=== PATIENT | male | born 1990 | race Caucasian/White ===

== ENCOUNTER 2020-02-04 16:53 | Emergency (ER) | payer BC ==
[~2020-02-04] VITALS: Ht 175.3 cm; Wt 117.9 kg
[2020-02-04 16:56] VITALS: BP 120/79
--- NOTE | 2020-02-04 17:02 | NUR ---
PT AMBULATED TO BED 12.
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
[2020-02-04 18:23] VITALS: BP 142/77
--- NOTE | 2020-02-04 18:23 | NUR ---
Patient discharged with v/s stable. Written and verbal after care instructions given and explained. Patient alert, oriented and verbalized understanding of instructions. Ambulatory with steady gait. All questions addressed prior to discharge. ID band removed. Patient advised to follow up with PMD. Rx of Valium 5mg and Ibuprofen 600mg given. Work excuse provided for next two days. Patient educated on indication of medication including possible reaction and side effects. Opportunity to ask questions provided and answered.
== END 2020-02-04 18:23 | disposition home or self-care (01) ==
LOC: MED 16:53
DX: R51.9 Headache, unspecified (principal); M54.2 Cervicalgia; R11.0 Nausea; Z98.890 Other specified postprocedural states; V49.9XXA Car occupant (driver) (passenger) injured in unspecified traffic accident, initial encounter; Y93.89 Activity, other specified; Y92.89 Other specified places as the place of occurrence of the external cause; Y99.8 Other external cause status
CPT/HCPCS: 70450; 72125; 99285

== ENCOUNTER 2020-02-11 10:48 | Emergency (ER) | payer BC ==
[~2020-02-11] VITALS: Ht 175.3 cm; Wt 132.4 kg
[2020-02-11 10:52] VITALS: BP 143/68
[2020-02-11 12:09] VITALS: BP 143/68
== END 2020-02-11 12:10 | disposition home or self-care (01) ==
LOC: MED 10:48
DX: S06.0X0A Concussion without loss of consciousness, initial encounter (principal); S90.31XA Contusion of right foot, initial encounter; V89.2XXA Person injured in unspecified motor-vehicle accident, traffic, initial encounter; Y93.89 Activity, other specified; Y92.89 Other specified places as the place of occurrence of the external cause; Y99.8 Other external cause status
CPT/HCPCS: 73630; 99283; Q0092

== ENCOUNTER 2020-08-01 10:16 | Emergency (ER) | payer BC ==
[~2020-08-01] VITALS: Ht 175.3 cm; Wt 131.5 kg
[2020-08-01 10:23] VITALS: BP 154/72
--- NOTE | 2020-08-01 10:33 | NUR ---
DR GRIMM AT BEDSIDE
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
--- NOTE | 2020-08-01 10:37 | NUR ---
RAD AT BEDSIDE
== END 2020-08-01 11:05 | disposition home or self-care (01) ==
LOC: MED 10:16
DX: S83.10 Unspecified subluxation and dislocation of knee (principal); R03.0 Elevated blood-pressure reading, without diagnosis of hypertension; X58.XXXD Exposure to other specified factors, subsequent encounter
CPT/HCPCS: 73562; 99283

== ENCOUNTER 2021-01-01 02:53 | Emergency (ER) | payer BC ==
[~2021-01-01] VITALS: Ht 172.7 cm; Wt 131.5 kg
[2021-01-01 03:01] VITALS: BP 167/45
--- NOTE | 2021-01-01 03:13 | NUR ---
PT TAKEN TO BED 3
--- NOTE | 2021-01-01 03:15 | NUR ---
Dr. Melo examining patient.
[2021-01-01] MEDS ORDERED: IBUPROFEN 600 MG TAB PO ONE (03:20)
--- NOTE | 2021-01-01 03:25 | NUR ---
Blood for labwork drawn from [facility]. Patient tolerated WELL
[2021-01-01 03:35] LABS: BASOPHILS % (AUTO) 0.3 % (0.0-2.0); EOSINOPHILS # (AUTO) 0.2 K/uL (0-0.4); EOSINOPHILS % (AUTO) 1.4 % (0.0-4.0); HEMATOCRIT 40.4 % (36-52); HEMOGLOBIN 13.4 g/dL (12.0-18.0); LYMPHOCYTES # (AUTO) 2.5 K/uL (2.0-11.5); LYMPHOCYTES % (AUTO) 17.5 % (20.5-51.1); MEAN CORPUSCULAR HEMOGLOBIN 28 pg (27-31); MEAN CORPUSCULAR HGB CONC 33 g/dL (33-37); MEAN CORPUSCULAR VOLUME 85.1 fL (80-94); MONOCYTES # (AUTO) 1.5 K/uL (0.8-1.0); MONOCYTES % (AUTO) 10.3 % (1.7-9.3); NEUTROPHILS # (AUTO) 10.1 K/uL (1.8-7.7); NEUTROPHILS % (AUTO) 70.5 % (42.2-75.2); PLATELET COUNT (AUTO) 304 K/uL (140-450); RED BLOOD CELL COUNT(AUTO) 4.75 MIL/uL (4.20-6.10); RED CELL DISTRIBUTION WIDTH 13.7 % (11.6-13.7); WHITE BLOOD COUNT (AUTO) 14.4 K/uL (4.8-10.8)
[2021-01-01 03:35] LABS: APPEARANCE,URINE CLEAR (CLEAR); BILIRUBIN,URINE NEGATIVE (NEGATIVE); BLOOD, URINE TRACE-I (NEGATIVE); COLOR,URINE YELLOW (YELLOW); LEUKOCYTE ESTERASE ,URINE NEGATIVE (NEGATIVE); NITRITE, URINE NEGATIVE (NEGATIVE); UGLUCOSE NEGATIVE (NEGATIVE)
[2021-01-01 03:41] LABS: RBC,URINE 0-5 /HPF (0-5); WBC,URINE 0-5 /HPF (0-5)
[2021-01-01 03:51] LABS: ALBUMIN 3.8 g/dL (3.4-5.0); ANION GAP 9.6 (8-16); CARBON DIOXIDE 28.4 mmol/L (21-32); CREATININE 0.9 mg/dL (0.6-1.3); TOTAL BILIRUBIN 0.3 mg/dL (0.0-1.0)
--- NOTE | 2021-01-01 04:30 | NUR ---
ALL RESULTS BACK AND NOTED BY ERMD AND FOR DC
[2021-01-01] MEDS ORDERED: MAGN1.7529 PO (04:58)
[2021-01-01 05:00] VITALS: BP 138/71
--- NOTE | 2021-01-01 05:00 | NUR ---
Patient discharged with v/s stable. Written and verbal after care instructions given and explained. Patient alert, oriented and verbalized understanding of instructions. Ambulatory with to car. All questions addressed prior to discharge. ID band removed. Patient advised to follow up with PMD. Rx of MAGNESUIN CITRATE given. Patient educated on indication of medication including possible reaction and side effects. Opportunity to ask questions provided and answered.
== END 2021-01-01 05:00 | disposition home or self-care (01) ==
LOC: MED 02:53
DX: K59.00 Constipation, unspecified (principal); R10.13 Epigastric pain
CPT/HCPCS: 36415; 74018; 80053; 81001; 83690; 85025; 99284

== ENCOUNTER 2021-01-02 11:30 | Emergency (ER) | payer BC ==
[~2021-01-02 11:30] MED LIST: MAGN1.7529 PO
--- NOTE | 2021-01-02 11:50 | NUR ---
PATIENT LEFT WITHOUT BEING SEEN BY DR. COY. NO FURTHER CARE PROVIDED FOR PATIENT.
== END 2021-01-02 11:50 | disposition left against medical advice (07) ==
LOC: MED 11:30
DX: Z53.21 Procedure and treatment not carried out due to patient leaving prior to being seen by health care provider (principal)

== ENCOUNTER 2021-07-15 11:15 | Emergency (ER) | payer BC ==
[~2021-07-15] VITALS: Ht 175.3 cm; Wt 127.0 kg
[2021-07-15 11:18] VITALS: BP 147/77
--- NOTE | 2021-07-15 11:24 | NUR ---
pt ambulated to bed 11 with steady gait.
--- NOTE | 2021-07-15 11:35 | NUR ---
DR NG AT BEDSIDE.
--- NOTE | 2021-07-15 12:07 | NUR ---
Patient discharged with v/s stable. Written and verbal after care instructions given and explained. Patient verbalized understanding. Ambulatory with steady gait. All questions addressed prior to discharge. Advised to follow up with PMD.
[2021-07-15 12:08] VITALS: BP 147/77
== END 2021-07-15 12:07 | disposition home or self-care (01) ==
LOC: MED 11:15
DX: H00.011 Hordeolum externum right upper eyelid (principal)
CPT/HCPCS: 99282

== ENCOUNTER 2021-08-14 15:08 | Emergency (ER) | payer BC ==
[~2021-08-14] VITALS: Ht 175.3 cm; Wt 122.5 kg
[2021-08-14 15:13] VITALS: BP 110/67
[2021-08-14] MEDS ORDERED: BACITRACIN OINT 500 UNITS/GM PKT TP ONE (15:15)
[2021-08-14] MEDS ORDERED: LIDOCAINE MPF 1% 10 MG/ML VIAL INJ ONE (15:15)
[2021-08-14] MEDS ORDERED: CEPH-588 PO (15:34)
[2021-08-14] MEDS ORDERED: BACI1PAC6 TP (15:34)
--- NOTE | 2021-08-14 15:39 | NUR ---
Patient discharged with v/s stable. Written and verbal after care instructions given and explained. Patient alert, oriented and verbalized understanding of instructions. Ambulatory with steady gait. All questions addressed prior to discharge. ID band removed. Patient advised to follow up with PMD. Rx of bacitracin, keflex given. Patient educated on indication of medication including possible reaction and side effects. Opportunity to ask questions provided and answered.
== END 2021-08-14 15:38 | disposition home or self-care (01) ==
LOC: MED 15:08
DX: S61.412A Laceration without foreign body of left hand, initial encounter (principal); Z79.899 Other long term (current) drug therapy; W27.2XXA Contact with scissors, initial encounter; Y93.89 Activity, other specified; Y92.89 Other specified places as the place of occurrence of the external cause; Y99.8 Other external cause status
CPT/HCPCS: 12001; 90471; 90715; 99283; J2001

== ENCOUNTER 2021-10-05 09:12 | Emergency (ER) | payer BC ==
[~2021-10-05] VITALS: Ht 175.3 cm; Wt 131.1 kg
[~2021-10-05 09:12] MED LIST changes: +BACI1PAC6 TP; +CEPH-588 PO; -MAGN1.7529 PO; +MAGN296S2 PO
[2021-10-05 09:17] VITALS: BP 138/113
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
[2021-10-05] MEDS ORDERED: IBUP-2213 PO (10:25)
[2021-10-05] MEDS ORDERED: CEPH-588 PO (10:25)
[2021-10-05 10:41] VITALS: BP 119/74
--- NOTE | 2021-10-05 10:43 | NUR ---
Patient discharged with v/s stable. Written and verbal after care instructions given and explained. Patient alert, oriented and verbalized understanding of instructions. Ambulatory with steady gait. All questions addressed prior to discharge. ID band removed. Patient advised to follow up with PMD. Rx of KEFLEX, IBUPROFEN given. Patient educated on indication of medication including possible reaction and side effects. Opportunity to ask questions provided and answered.
== END 2021-10-05 10:43 | disposition home or self-care (01) ==
LOC: MED 09:12
DX: L03.811 Cellulitis of head [any part, except face] (principal); Z98.890 Other specified postprocedural states; Z79.2 Long term (current) use of antibiotics; Z79.899 Other long term (current) drug therapy
CPT/HCPCS: 99283

== ENCOUNTER 2022-05-07 08:22 | Emergency (ER) | payer BC ==
[~2022-05-07] VITALS: Ht 175.3 cm; Wt 127.0 kg
[~2022-05-07 08:22] MED LIST changes: +BACI-416 TP; -BACI1PAC6 TP; +IBUP-2213 PO
[2022-05-07 08:23] VITALS: BP 129/79
--- NOTE | 2022-05-07 08:43 | NUR ---
PT RECEIVED, CARE ASSUMED. PT PRESENTS SELF TO ER WITH C/O BLOOD STOOL. PT DENIES ACTIVE BLEEDING BUT STATES " THERE IS A LITTLE BLOOD IN [place] POOP" GAVE URINE CUP TO COLLECT URINE SAMPLE, AWITING TO BE SEEN BY
[2022-05-07] MEDS ORDERED: ONDANSETRON 4 MG/2 ML VIAL IVP ONE (08:50)
[2022-05-07] MEDS ORDERED: FAMOTIDINE 20 MG/2 ML VIAL IVP ONE (08:50)
[2022-05-07] MEDS ORDERED: NACL 0.9% 1,000 ML IV SCH (08:50)
[2022-05-07] MEDS ORDERED: DICYCLOMINE HCL LIQUID 10 MG/5 ML UDC PO ONE (08:50)
[2022-05-07 09:33] LABS: BASOPHILS % (AUTO) 0.2 % (0.0-2.0); HEMATOCRIT 38.9 % (36-52); HEMOGLOBIN 13.3 g/dL (12.0-18.0); LYMPHOCYTES % (AUTO) 8.9 % (20.5-51.1); MEAN CORPUSCULAR HEMOGLOBIN 28 pg (27-31); MEAN CORPUSCULAR HGB CONC 34 g/dL (33-37); MONOCYTES # (AUTO) 0.6 K/uL (0.8-1.0); MONOCYTES % (AUTO) 5.7 % (1.7-9.3); NEUTROPHILS # (AUTO) 9.5 K/uL (1.8-7.7); NEUTROPHILS % (AUTO) 85.2 % (42.2-75.2); PLATELET COUNT (AUTO) 303 K/uL (140-450); RED BLOOD CELL COUNT(AUTO) 4.68 MIL/uL (4.20-6.10); RED CELL DISTRIBUTION WIDTH 13.2 % (11.6-13.7); WHITE BLOOD COUNT (AUTO) 11.1 K/uL (4.8-10.8)
[2022-05-07 09:44] LABS: ALBUMIN 3.9 g/dL (3.4-5.0); ANION GAP 12.2 (8-16); CARBON DIOXIDE 26.7 mmol/L (21-32); CREATININE 0.9 mg/dL (0.6-1.3); POTASSIUM 3.9 mmol/L (3.5-5.1); TOTAL BILIRUBIN 0.2 mg/dL (0.0-1.0)
[2022-05-07 10:05] LABS: APPEARANCE,URINE CLEAR (CLEAR); BILIRUBIN,URINE NEGATIVE (NEGATIVE); BLOOD, URINE 1+ (NEGATIVE); COLOR,URINE YELLOW (YELLOW); LEUKOCYTE ESTERASE ,URINE TRACE (NEGATIVE); NITRITE, URINE POSITIVE (NEGATIVE); UGLUCOSE NEGATIVE (NEGATIVE)
[2022-05-07 10:18] LABS: RBC,URINE 0 /HPF (0-5); WBC,URINE 0-5 /HPF (0-5)
[2022-05-07] MEDS ORDERED: METR-435 PO (11:37)
[2022-05-07] MEDS ORDERED: CIPR500T4 PO (11:37)
[2022-05-07] MEDS ORDERED: ONDA-188 SL (11:37)
[2022-05-07 12:19] VITALS: BP 139/88
== END 2022-05-07 12:00 | disposition home or self-care (01) ==
LOC: MED 08:22
DX: K52.9 Noninfective gastroenteritis and colitis, unspecified (principal)
CPT/HCPCS: 36415; 74177; 80053; 81001; 83690; 85025; 87086; 96361; 96374; 96375; 99285; J2405; J3490; J7030; Q9967

== ENCOUNTER 2022-12-23 15:46 | Emergency (ER) | payer BC ==
[~2022-12-23] VITALS: Ht 175.3 cm; Wt 126.1 kg
[~2022-12-23 15:46] MED LIST changes: -BACI-416 TP; +BACI-418 TP; +CIPR500T4 PO; -MAGN296S2 PO; +MAGN296S70 PO; +METR-435 PO; +ONDA-188 SL
[2022-12-23 15:53] VITALS: BP 147/63; PULSE 80; RESP 20; TEMP 98.7; O2SAT 100
[2022-12-23] MEDS ORDERED: AMOX-999 PO (16:33)
== END 2022-12-23 16:39 | disposition home or self-care (01) ==
LOC: MED 15:46
DX: K04.7 Periapical abscess without sinus (principal); Z79.899 Other long term (current) drug therapy
CPT/HCPCS: 41800; 99284